=== PATIENT | female | born 1945 | race African-American/Black ===

== ENCOUNTER 2020-09-14 05:54 | Inpatient (IN) | payer OTHER, MEDICARE ==
[~2020-09-14] VITALS: Ht 160 cm; Wt 64.7 kg
[~2020-09-14 05:54] MED LIST: AMLO-258 PO; CLOP75TA60 PO; LOVA20TA3 PO; METF-444 PO
[2020-09-14] MEDS ORDERED: ONDANSETRON HCL 4 MG/2 ML VIAL ONE (06:01)
[2020-09-14 06:10] LABS: ABG A-A DIFF O2 610.9 mmHg (10-20.0); ABG BASE EXCESS -5.5 mmol/L (-2.0-3.0); ABG HCO3 19.7 mmol/L (22.0-26.0); ABG METHEMOGLOBIN 0.2 % (0.0-1.5); ABG OXYGEN CONTENT 14.1 mL/dL (15.0-23.0); ABG OXYHEMOGLOBIN 80.9 % (94.0-100.0); ABG PCO2 48 mmHg (35-45); ABG PH 7.267 (7.35-7.450); ABG TOTAL HEMOGLOBIN 12.4 G/dL (12.0-18.0); PO2, ARTERIAL BG 53.9 mmHg (75.0-83.0); SOURCE, BLOOD GAS ARTERIAL; TEMPERATURE, FAHRENHEIT, BG 98.6 FAHREN (96.0-98.6)
[2020-09-14 06:11] LABS: ABG OXYGEN SATURATION 83.6 % (95.0-98.0); O2 DEVICE,BLOOD GAS NRB (ROOM AIR); SITE, BLOOD GAS RT RADIAL
[2020-09-14] MEDS ORDERED: MethylPREDNISolone SOD SUCC 125 MG/2 ML VIAL IVP ONE (06:15)
[2020-09-14] MEDS ORDERED: NITROGLYCERIN 50 MG/D5% WATER 250 ML IV PRN (06:15)
[2020-09-14] MEDS ORDERED: IPRATROPIUM BROMIDE 0.5 MG/2.5 ML NEB SOLUTION NEB ONE (06:15)
[2020-09-14] MEDS ORDERED: ONDANSETRON HCL 4 MG/2 ML VIAL IVP ONE (06:15)
[2020-09-14] MEDS ORDERED: ALBUTEROL SULFATE 2.5 MG/0.5 ML NEB SOLUTION NEB ONE (06:15)
[2020-09-14 06:19] LABS: BASOPHILS % (AUTO) 0.8 % (0.0-2.0); EOSINOPHILS % (AUTO) 2.7 % (1.0-6.0); HEMATOCRIT 36.2 % (36-46); HEMOGLOBIN 11.8 g/dL (12.0-16.0); LYMPHOCYTES # (AUTO) 4.2 K/uL (1.0-4.8); LYMPHOCYTES % (AUTO) 36.7 % (22.0-44.0); MEAN CORPUSCULAR HGB CONC 32.6 G/dL (31.0-37.0); MEAN CORPUSCULAR VOLUME 89 fL (80-100); MONOCYTES # (AUTO) 0.9 K/uL (0.1-1.0); MONOCYTES % (AUTO) 8.2 % (2.0-9.0); NEUTROPHILS # (AUTO) 5.9 K/uL (1.8-7.7); NEUTROPHILS % (AUTO) 51.6 % (40.0-70.0); PLATELET COUNT (AUTO) 368 K/uL (150-450); RED BLOOD CELL COUNT(AUTO) 4.07 MIL/uL (4.00-5.20); RED CELL DISTRIBUTION WIDTH 15.3 % (11.5-14.5)
[2020-09-14 06:34] LABS: PROTHROMBIN TIME 10.5 SEC (9.4-11.6)
[2020-09-14 06:35] LABS: ANION GAP 13 mmol/L (8-16); CALCIUM, TOTAL 8.8 mg/dL (8.8-10.5); CARBON DIOXIDE 23 mmol/L (22-29); CHLORIDE 103 mmol/L (98-107); GLUCOSE,RANDOM 152 mg/dL (70-110); POTASSIUM 3.6 mmol/L (3.5-5.1); SODIUM SERUM 139 mmol/L (136-145); UREA NITROGEN, BLOOD 11 mg/dL (7-18)
[2020-09-14 06:37] LABS: GLOMERULAR FILTR. RATE CALC > 60 mL/min (>60)
[2020-09-14 06:38] LABS: COVID AG,FIA SOURCE NASOPHARYNGEAL
[2020-09-14 06:50] LABS: B-TYPE NATRIURETIC PEPTIDE 1250 pg/mL (0-100); LACTIC ACID 4.4 mmol/L (0.4-2.0)
[2020-09-14] MEDS ORDERED: VALS40TA4 PO (06:54)
[2020-09-14] MEDS ORDERED: SPIR-37 PO (06:54)
[2020-09-14] MEDS ORDERED: CARV3 PO (06:54)
[2020-09-14] MEDS ORDERED: FURO20 PO (06:54)
[2020-09-14] MEDS ORDERED: LEVO150 PO (06:54)
[2020-09-14] MEDS ORDERED: POTA-79 PO (06:54)
[2020-09-14 06:59] LABS: ALANINE AMINOTRANSFERASE 23 U/L (12-78); ALBUMIN 3.6 g/dL (3.4-5.0); ALKALINE PHOSPHATASE 125 U/L (46-116); ASPARTATE AMINOTRANSFERASE 32 U/L (15-37); BILIRUBIN,TOTAL 0.5 mg/dL (0.1-1.0); CREATINE KINASE, TOTAL ONLY 102 U/L (26-192); PHOSPHORUS 5.1 mg/dL (2.5-4.9); TOTAL PROTEIN, SERUM 7.6 g/dL (6.4-8.2)
[2020-09-14] MEDS ORDERED: AZITHROMYCIN 500 MG/NS 250 ML IV ONE (07:00)
[2020-09-14] MEDS ORDERED: CefTRIAXone 1 GM/DEXTROSE 50 ML IV ONE (07:00)
[2020-09-14 07:22] LABS: ABG A-A DIFF O2 274.4 mmHg (10-20.0); ABG BASE EXCESS -2.3 mmol/L (-2.0-3.0); ABG CARBOXYHEMOGLOBIN 1.1 % (0.0-1.5); ABG HCO3 22.9 mmol/L (22.0-26.0); ABG METHEMOGLOBIN 0.5 % (0.0-1.5); ABG OXYGEN CONTENT 16.5 mL/dL (15.0-23.0); ABG OXYGEN SATURATION 99.4 % (95.0-98.0); ABG OXYHEMOGLOBIN 97.8 % (94.0-100.0); ABG PCO2 39 mmHg (35-45); ABG PH 7.385 (7.35-7.450); ABG TOTAL HEMOGLOBIN 11.2 G/dL (12.0-18.0); PO2, ARTERIAL BG 399.1 mmHg (75.0-83.0); SOURCE, BLOOD GAS ARTERIAL
[2020-09-14 07:23] LABS: O2 DEVICE,BLOOD GAS BIPAP (ROOM AIR); SITE, BLOOD GAS LFT RADIAL; SPONTANEOUS VT, BG 450 ml
[2020-09-14] MEDS ORDERED: FUROSEMIDE 20 MG/2 ML VIAL IVP ONE (07:45)
[2020-09-14] MEDS ORDERED: 0.9% SODIUM CHLORIDE 10 ML SYRINGE IVP PRN ×2 (07:45→10:15)
[2020-09-14] MEDS ORDERED: ACETAMINOPHEN 325 MG TABLET PO PRN ×2 (07:45→10:15)
[2020-09-14] MEDS ORDERED: ONDANSETRON HCL 4 MG/2 ML VIAL IVP PRN ×2 (07:45→10:15)
[2020-09-14 08:35] LABS: APPEARANCE,URINE CLEAR (CLEAR); BILIRUBIN,URINE NEGATIVE (NEGATIVE); GLUCOSE, URINE (UA) NEGATIVE (NEGATIVE); KETONES,URINE NEGATIVE (NEGATIVE); LEUKOCYTE ESTERASE ,URINE NEGATIVE (NEGATIVE); NITRATE,URINE NEGATIVE (NEGATIVE); OCCULT BLOOD,URINE NEGATIVE (NEGATIVE); PROTEIN,URINE SEE CONFIRM (NEGATIVE); UROBILINOGEN,URINE 0.2 mg/dL (<=1.0)
[2020-09-14] MEDS ORDERED: NITROGLYCERIN 0.4 MG SUBLINGUAL TABLET #25 SL PRN (09:45)
[2020-09-14 09:47] LABS: SULFOSALICYLIC ACID,URINE Trace (Negative)
[2020-09-14 09:48] LABS: BACTERIA,URINE None Seen /HPF (None Seen); RBC,URINE None Seen /HPF (0-2); SQUAMOUS EPITHELIAL CELL,UR Few /LPF (None Seen); WBC,URINE None Seen /HPF (0-5)
[2020-09-14] MEDS ORDERED: BISACODYL 10 MG RECTAL RECTAL SUPPOSITORY PR PRN (10:15)
[2020-09-14] MEDS ORDERED: IPRATROPIUM BROMIDE 0.5 MG/2.5 ML NEB SOLUTION NEB PRN (10:15)
[2020-09-14] MEDS ORDERED: MAGNESIUM HYDROXIDE SUSPENSION 30 ML UDCUP PO PRN (10:15)
[2020-09-14] MEDS ORDERED: DOCUSATE SODIUM 100 MG CAPSULE PO PRN (10:15)
[2020-09-14] MEDS ORDERED: ALBUTEROL SULFATE 2.5 MG/0.5 ML NEB SOLUTION NEB PRN (10:15)
[2020-09-14] MEDS ORDERED: DEXTROSE 50%-WATER 25 GM/50 ML SYRINGE IVP PRN (10:15)
[2020-09-14] MEDS: PANTOPRAZOLE SODIUM 40 MG DR TABLET PO SCH (10:52)
[2020-09-14 12:00] VITALS: BP 128/78
[2020-09-14] MEDS: NICOTINE 14 MG/24 HOUR PATCH TD SCH (12:22)
[2020-09-14 15:09] LABS: GLUCOSE,POINT OF CARE 122 MG/DL (70-110)
[2020-09-14 16:00] VITALS: BP 112/70
[2020-09-14] MEDS: HEPARIN SODIUM,PORCINE 5,000 UNITS/ML VIAL SQ SCH (16:41)
[2020-09-14 20:00] VITALS: BP 133/71
[2020-09-14] MEDS ORDERED: CARVEDILOL 3.125 MG TABLET PO SCH (21:00)
[2020-09-14] MEDS: FUROSEMIDE 40 MG/4 ML VIAL IVP SCH (21:09)
[2020-09-14] MEDS: CARVEDILOL 6.25 MG TABLET PO SCH (21:09)
[2020-09-14] MEDS: VALSARTAN 40 MG TABLET PO SCH (21:09)
[2020-09-15] VITALS (7 sets, daily range): BP systolic 106–145; BP diastolic 64–85
[2020-09-15 03:29] LABS: GLUCOSE,POINT OF CARE 129 MG/DL (70-110)
[2020-09-15 03:29] LABS: GLUCOSE,POINT OF CARE 132 MG/DL (70-110)
[2020-09-15] MEDS: CefTRIAXone 1 GM/DEXTROSE 50 ML IV SCH (05:05)
[2020-09-15] MEDS ORDERED: SODIUM CHLORIDE 0.9% 250 ML IV ONE ×2 (05:07→18:22)
[2020-09-15 06:06] LABS: BASOPHILS % (AUTO) 0.7 % (0.0-2.0); EOSINOPHILS % (AUTO) 0.2 % (1.0-6.0); HEMATOCRIT 31.5 % (36-46); HEMOGLOBIN 10.5 g/dL (12.0-16.0); LYMPHOCYTES # (AUTO) 1.4 K/uL (1.0-4.8); MEAN CORPUSCULAR HEMOGLOBIN 29.2 pg (26.0-34.0); MEAN CORPUSCULAR HGB CONC 33.2 G/dL (31.0-37.0); MEAN CORPUSCULAR VOLUME 88 fL (80-100); MONOCYTES # (AUTO) 0.7 K/uL (0.1-1.0); NEUTROPHILS % (AUTO) 76.1 % (40.0-70.0); PLATELET COUNT (AUTO) 323 K/uL (150-450); RED BLOOD CELL COUNT(AUTO) 3.58 MIL/uL (4.00-5.20); RED CELL DISTRIBUTION WIDTH 15.6 % (11.5-14.5)
[2020-09-15] MEDS: DOXYCYCLINE HYCLATE 100 MG in DEXTROSE 5%-WATER 100 ML IV SCH ×2 (06:15→18:35)
[2020-09-15] MEDS: LEVOTHYROXINE SODIUM 150 MCG TABLET PO SCH (06:16)
[2020-09-15 06:55] LABS: ALANINE AMINOTRANSFERASE 21 U/L (12-78); ALBUMIN 2.7 g/dL (3.4-5.0); ALKALINE PHOSPHATASE 100 U/L (46-116); ANION GAP 7 mmol/L (8-16); ASPARTATE AMINOTRANSFERASE 19 U/L (15-37); BILIRUBIN,TOTAL 0.2 mg/dL (0.1-1.0); CALCIUM, TOTAL 8.6 mg/dL (8.8-10.5); CARBON DIOXIDE 29 mmol/L (22-29); CHLORIDE 101 mmol/L (98-107); CHOL/HDL RATIO 3.5 (3.9-5.7); CHOLESTEROL 177 mg/dL (131-200); CREATININE 0.91 mg/dL (0.60-1.30); FREE T4 (FREE THYROXINE) 0.92 ng/dL (0.76-1.46); GLOMERULAR FILTR. RATE CALC > 60 mL/min (>60); GLUCOSE,RANDOM 99 mg/dL (70-110); HDL CHOLESTEROL 50 mg/dL (40-60); LDL CHOL (CALC.) 113 mg/dL (0-130); POTASSIUM 3.8 mmol/L (3.5-5.1); SODIUM SERUM 137 mmol/L (136-145); TOTAL PROTEIN, SERUM 6.6 g/dL (6.4-8.2); TRIGLYCERIDES 70 mg/dL (15-150); UREA NITROGEN, BLOOD 20 mg/dL (7-18)
[2020-09-15 07:22] LABS: HEMOGLOBIN A1C 5.9 % (3.8-5.6)
[2020-09-15 07:27] LABS: GLUCOSE,POINT OF CARE 93 MG/DL (70-110)
[2020-09-15] MEDS: VALSARTAN 40 MG TABLET PO SCH ×2 (08:23→20:09)
[2020-09-15] MEDS: NICOTINE 14 MG/24 HOUR PATCH TD SCH (08:23)
[2020-09-15] MEDS: CARVEDILOL 6.25 MG TABLET PO SCH ×2 (08:23→20:09)
[2020-09-15] MEDS: HEPARIN SODIUM,PORCINE 5,000 UNITS/ML VIAL SQ SCH ×4 (08:23→23:39)
[2020-09-15] MEDS: ASPIRIN 81 MG CHEWABLE TABLET PO SCH (08:23)
[2020-09-15] MEDS: PANTOPRAZOLE SODIUM 40 MG DR TABLET PO SCH (09:00)
[2020-09-15] MEDS: FUROSEMIDE 40 MG/4 ML VIAL IVP SCH (10:41)
[2020-09-15 17:17] LABS: GLUCOSE,POINT OF CARE 122 MG/DL (70-110)
[2020-09-15] MEDS: FUROSEMIDE 40 MG TABLET PO SCH (20:09)
[2020-09-15] MEDS: INSULIN LISPRO 100 UNITS/ML SQ PRN (20:13)
[2020-09-15 21:10] LABS: GLUCOSE,POINT OF CARE 100 MG/DL (70-110)
[2020-09-16 00:02] VITALS: BP 126/73
[2020-09-16 03:29] LABS: GLUCOMETER DEV NAME(LOC) 5S.2B; GLUCOSE,POINT OF CARE 155 MG/DL (70-110)
[2020-09-16 04:49] VITALS: BP 130/82
[2020-09-16] MEDS: CefTRIAXone 1 GM/DEXTROSE 50 ML IV SCH (05:27)
[2020-09-16 05:58] LABS: BASOPHILS % (AUTO) 0.8 % (0.0-2.0); HEMATOCRIT 34.2 % (36-46); HEMOGLOBIN 11.3 g/dL (12.0-16.0); LYMPHOCYTES # (AUTO) 2.3 K/uL (1.0-4.8); LYMPHOCYTES % (AUTO) 25.4 % (22.0-44.0); MEAN CORPUSCULAR HEMOGLOBIN 28.9 pg (26.0-34.0); MEAN CORPUSCULAR HGB CONC 32.9 G/dL (31.0-37.0); MEAN CORPUSCULAR VOLUME 88 fL (80-100); MONOCYTES # (AUTO) 0.7 K/uL (0.1-1.0); MONOCYTES % (AUTO) 8.1 % (2.0-9.0); NEUTROPHILS # (AUTO) 5.9 K/uL (1.8-7.7); NEUTROPHILS % (AUTO) 64.7 % (40.0-70.0); PLATELET COUNT (AUTO) 323 K/uL (150-450); RED CELL DISTRIBUTION WIDTH 15.6 % (11.5-14.5)
[2020-09-16] MEDS: LEVOTHYROXINE SODIUM 150 MCG TABLET PO SCH (06:05)
[2020-09-16] MEDS: DOXYCYCLINE HYCLATE 100 MG in DEXTROSE 5%-WATER 100 ML IV SCH ×2 (06:06→18:59)
[2020-09-16 06:59] LABS: ALANINE AMINOTRANSFERASE 17 U/L (12-78); ALBUMIN 2.9 g/dL (3.4-5.0); ALKALINE PHOSPHATASE 96 U/L (46-116); ANION GAP 7 mmol/L (8-16); ASPARTATE AMINOTRANSFERASE 17 U/L (15-37); BILIRUBIN,TOTAL 0.3 mg/dL (0.1-1.0); CALCIUM, TOTAL 8.5 mg/dL (8.8-10.5); CARBON DIOXIDE 30 mmol/L (22-29); CHLORIDE 99 mmol/L (98-107); CREATININE 0.77 mg/dL (0.60-1.30); GLOMERULAR FILTR. RATE CALC > 60 mL/min (>60); GLUCOSE,RANDOM 73 mg/dL (70-110); POTASSIUM 3.3 mmol/L (3.5-5.1); SODIUM SERUM 136 mmol/L (136-145); UREA NITROGEN, BLOOD 22 mg/dL (7-18)
[2020-09-16 08:05] VITALS: BP 145/81
[2020-09-16] MEDS: ASPIRIN 81 MG CHEWABLE TABLET PO SCH (08:06)
[2020-09-16] MEDS: HEPARIN SODIUM,PORCINE 5,000 UNITS/ML VIAL SQ SCH ×3 (08:07→23:56)
[2020-09-16] MEDS: CARVEDILOL 6.25 MG TABLET PO SCH ×2 (08:07→20:34)
[2020-09-16] MEDS: VALSARTAN 40 MG TABLET PO SCH ×2 (08:08→20:34)
[2020-09-16] MEDS: PANTOPRAZOLE SODIUM 40 MG DR TABLET PO SCH (08:08)
[2020-09-16] MEDS: FUROSEMIDE 40 MG TABLET PO SCH ×2 (08:08→20:34)
[2020-09-16] MEDS: NICOTINE 14 MG/24 HOUR PATCH TD SCH (09:29)
[2020-09-16 10:38] LABS: COVID AG,FIA SOURCE NASOPHARYNGEAL
[2020-09-16 12:05] VITALS: BP 125/77
[2020-09-16] MEDS ORDERED: SPIR-37 PO (13:48)
[2020-09-16] MEDS ORDERED: ASPI81TA39 PO (14:38)
[2020-09-16] MEDS: INSULIN LISPRO 100 UNITS/ML SQ PRN (18:50)
[2020-09-16] MEDS ORDERED: POTASSIUM CHLORIDE 20 MEQ ER TABLET PO ONE (19:30)
[2020-09-16 20:04] VITALS: BP 141/74
[2020-09-16 23:58] VITALS: BP 142/83
[2020-09-17 03:53] VITALS: BP 128/83
[2020-09-17] MEDS: CefTRIAXone 1 GM/DEXTROSE 50 ML IV SCH (04:10)
[2020-09-17] MEDS: DOXYCYCLINE HYCLATE 100 MG in DEXTROSE 5%-WATER 100 ML IV SCH (05:28)
[2020-09-17] MEDS: LEVOTHYROXINE SODIUM 150 MCG TABLET PO SCH (05:32)
[2020-09-17 08:10] LABS: GLUCOMETER DEV NAME(LOC) 6S.1; GLUCOSE,POINT OF CARE 94 MG/DL (70-110)
[2020-09-17 08:17] VITALS: BP 129/68
[2020-09-17] MEDS: FUROSEMIDE 40 MG TABLET PO SCH (08:25)
[2020-09-17] MEDS: NICOTINE 14 MG/24 HOUR PATCH TD SCH (08:25)
[2020-09-17] MEDS: PANTOPRAZOLE SODIUM 40 MG DR TABLET PO SCH (08:26)
[2020-09-17] MEDS: HEPARIN SODIUM,PORCINE 5,000 UNITS/ML VIAL SQ SCH (08:26)
[2020-09-17] MEDS: ASPIRIN 81 MG CHEWABLE TABLET PO SCH (08:26)
[2020-09-17] MEDS: CARVEDILOL 6.25 MG TABLET PO SCH (08:26)
[2020-09-17 09:02] LABS: GLUCOMETER DEV NAME(LOC) 5S.1; GLUCOSE,POINT OF CARE 198 MG/DL (70-110)
[2020-09-17 09:02] LABS: GLUCOMETER DEV NAME(LOC) 5S.2B; GLUCOSE,POINT OF CARE 146 MG/DL (70-110)
[2020-09-17] MEDS: VALSARTAN 40 MG TABLET PO SCH (09:09)
[2020-09-17 10:09] LABS: ANION GAP 4 mmol/L (8-16); CALCIUM, TOTAL 8.8 mg/dL (8.8-10.5); CARBON DIOXIDE 31 mmol/L (22-29); CHLORIDE 100 mmol/L (98-107); CREATININE 1.03 mg/dL (0.60-1.30); GLUCOSE,RANDOM 100 mg/dL (70-110); POTASSIUM 3.4 mmol/L (3.5-5.1); SODIUM SERUM 135 mmol/L (136-145); UREA NITROGEN, BLOOD 18 mg/dL (7-18)
[2020-09-17 10:10] LABS: GLOMERULAR FILTR. RATE CALC > 60 mL/min (>60)
[2020-09-17 19:15] LABS: GLUCOMETER DEV NAME(LOC) 6S.1; GLUCOSE,POINT OF CARE 82 MG/DL (70-110)
[2020-09-18 01:31] LABS: GLUCOMETER DEV NAME(LOC) 5N.1C; GLUCOSE,POINT OF CARE 127 MG/DL (70-110)
[2020-09-18 01:31] LABS: GLUCOMETER DEV NAME(LOC) 5N.1C; GLUCOSE,POINT OF CARE 92 MG/DL (70-110)
== END 2020-09-17 16:57 | disposition home health service (06) | DRG 291 ==
LOC: EMS 05:54 → ICU 08:16 → 5N 09-15 17:50 → 6N 09-17 04:21
PROVIDERS: ADMIT Internal Medicine; ATTEND Internal Medicine
PROC: 5A09357 Assistance with Respiratory Ventilation, Less than 24 Consecutive Hours, Continuous Positive Airway Pressure (ICD-10-PCS; 2020-09-14)
PROC: 05HY33Z Insertion of Infusion Device into Upper Vein, Percutaneous Approach (ICD-10-PCS; principal; 2020-09-15)
PROC: B54NZZA Ultrasonography of Left Upper Extremity Veins, Guidance (ICD-10-PCS; 2020-09-15)
DX: I11.0 Hypertensive heart disease with heart failure (principal); J96.01 Acute respiratory failure with hypoxia; J18.9 Pneumonia, unspecified organism; J44.1 Chronic obstructive pulmonary disease with (acute) exacerbation; E87.2 Acidosis; J44.0 Chronic obstructive pulmonary disease with (acute) lower respiratory infection; I50.23 Acute on chronic systolic (congestive) heart failure; I42.9 Cardiomyopathy, unspecified; E03.9 Hypothyroidism, unspecified; E11.9 Type 2 diabetes mellitus without complications; E78.5 Hyperlipidemia, unspecified; Z91.14 Patient's other noncompliance with medication regimen; Z87.891 Personal history of nicotine dependence; Z90.710 Acquired absence of both cervix and uterus; Z79.899 Other long term (current) drug therapy; Z82.49 Family history of ischemic heart disease and other diseases of the circulatory system; Z20.822 Contact with and (suspected) exposure to COVID-19
CPT/HCPCS: 36245; 36569; 36600; 71045; 71250; 76937; 80048; 80053; 80061; 81001; 81002; 82550; 82805; 82962; 83036; 83605; 83735; 83880; 84100; 84145; 84439; 84443; 84484; 85025; 85610; 85730; 87040; 87081; 93005; 93306; 94640; 94660; 97116; 97162; 99291; G0378; J0456; J0696; J1644; J1940; J2405; J2930; J3490; J7050; J7060; 36415-L1; 36415-TC; J7613; U0003

== ENCOUNTER 2021-12-08 03:15 | Inpatient (IN) | payer MEDICARE, OTHER ==
[~2021-12-08] VITALS: Ht 160 cm; Wt 72.4 kg
[~2021-12-08 03:15] MED LIST changes: -AMLO-258 PO; +ASPI81TA39 PO; +CARV3 PO; -CLOP75TA60 PO; +FURO20 PO; +LEVO150 PO; -LOVA20TA3 PO; -METF-444 PO; +POTA-79 PO; +SPIR-37 PO; +VALS40TA4 PO
[2021-12-08] MEDS ORDERED: ASPIRIN 300 MG RECTAL SUPPOSITORY PR ONE (03:30)
[2021-12-08] MEDS ORDERED: FUROSEMIDE 40 MG/4 ML VIAL IVP ONE (03:30)
[2021-12-08] MEDS ORDERED: NITROGLYCERIN 50 MG/D5% WATER 250 ML IV PRN (03:30)
[2021-12-08 03:35] LABS: BASOPHILS % (AUTO) 0.4 % (0.0-2.0); EOSINOPHILS % (AUTO) 1.1 % (1.0-6.0); HEMATOCRIT 36.1 % (36-46); HEMOGLOBIN 11.8 g/dL (12.0-16.0); LYMPHOCYTES # (AUTO) 2.5 K/uL (1.0-4.8); LYMPHOCYTES % (AUTO) 21.9 % (22.0-44.0); MEAN CORPUSCULAR HEMOGLOBIN 28.8 pg (26.0-34.0); MEAN CORPUSCULAR HGB CONC 32.8 G/dL (31.0-37.0); MEAN CORPUSCULAR VOLUME 88 fL (80-100); MONOCYTES # (AUTO) 0.4 K/uL (0.1-1.0); MONOCYTES % (AUTO) 3.7 % (2.0-9.0); NEUTROPHILS # (AUTO) 8.2 K/uL (1.8-7.7); NEUTROPHILS % (AUTO) 72.9 % (40.0-70.0); PLATELET COUNT (AUTO) 294 K/uL (150-450); RED BLOOD CELL COUNT(AUTO) 4.11 MIL/uL (4.00-5.20); RED CELL DISTRIBUTION WIDTH 15.4 % (11.5-14.5)
[2021-12-08 03:50] LABS: INR 1.1 (0.9-1.1); PROTHROMBIN TIME 11.5 SEC (9.4-11.6)
[2021-12-08 03:56] LABS: B-TYPE NATRIURETIC PEPTIDE 1240 pg/mL (0-100)
[2021-12-08 03:58] LABS: ALANINE AMINOTRANSFERASE 50 U/L (12-78); ALBUMIN 3.9 g/dL (3.4-5.0); ALKALINE PHOSPHATASE 106 U/L (46-116); ANION GAP 11 mmol/L (8-16); ASPARTATE AMINOTRANSFERASE 76 U/L (15-37); BILIRUBIN,TOTAL 0.5 mg/dL (0.1-1.0); CALCIUM, TOTAL 8.7 mg/dL (8.8-10.5); CARBON DIOXIDE 28 mmol/L (22-29); CHLORIDE 101 mmol/L (98-107); CREATINE KINASE, TOTAL ONLY 207 U/L (26-192); CREATININE 0.89 mg/dL (0.60-1.30); GLOMERULAR FILTR. RATE CALC > 60 mL/min (>60); GLUCOSE,RANDOM 230 mg/dL (70-110); PHOSPHORUS 4.5 mg/dL (2.5-4.9); SODIUM SERUM 140 mmol/L (136-145); TOTAL PROTEIN, SERUM 8.3 g/dL (6.4-8.2); UREA NITROGEN, BLOOD 14 mg/dL (7-18)
[2021-12-08 04:15] LABS: COVID AG,FIA SOURCE NASOPHARYNGEAL
[2021-12-08] MEDS ORDERED: POTASSIUM CHL 10 MEQ/WATER 50 ML IV SCH (04:15)
[2021-12-08 04:17] LABS: APPEARANCE,URINE CLEAR (CLEAR); BILIRUBIN,URINE NEGATIVE (NEGATIVE); GLUCOSE, URINE (UA) 150-200 mg/dL (NEGATIVE); KETONES,URINE NEGATIVE (NEGATIVE); LEUKOCYTE ESTERASE ,URINE NEGATIVE (NEGATIVE); NITRATE,URINE NEGATIVE (NEGATIVE); OCCULT BLOOD,URINE TRACE (NEGATIVE); PH,URINE 6.5 (5.0-8.0); PROTEIN,URINE 30-70 mg/dL (NEGATIVE); SPECIFIC GRAVITIY, URINE 1.007 (1.003-1.030); UROBILINOGEN,URINE <=1.0 mg/dL (<=1.0)
[2021-12-08 04:35] LABS: BACTERIA,URINE None Seen /HPF (None Seen); RBC,URINE 0-2 /HPF (0-2); WBC,URINE None Seen /HPF (0-5)
[2021-12-08] MEDS ORDERED: POTASSIUM CHLORIDE 20 MEQ ER TABLET PO ONE (05:00)
[2021-12-08] MEDS ORDERED: DEXTROSE 50%-WATER 25 GM/50 ML SYRINGE IVP PRN (05:45)
[2021-12-08] MEDS: LEVOTHYROXINE SODIUM 150 MCG TABLET PO SCH (06:28)
[2021-12-08] MEDS ORDERED: FUROSEMIDE 40 MG/4 ML VIAL IVP SCH (09:00)
[2021-12-08] MEDS: SPIRONOLACTONE 25 MG TABLET PO SCH (09:13)
[2021-12-08] MEDS: VALSARTAN 40 MG TABLET PO SCH ×2 (09:13→21:15)
[2021-12-08] MEDS: ASPIRIN 81 MG CHEWABLE TABLET PO SCH (09:13)
[2021-12-08] MEDS: CARVEDILOL 3.125 MG TABLET PO SCH ×2 (09:14→21:15)
[2021-12-08] MEDS: ATORVASTATIN CALCIUM 40 MG TABLET PO SCH (09:14)
[2021-12-08 09:26] LABS: ABG BASE EXCESS 6.5 mmol/L (-2.0-3.0); ABG CARBOXYHEMOGLOBIN 0.8 % (0.0-1.5); ABG HCO3 29.7 mmol/L (22.0-26.0); ABG METHEMOGLOBIN 0.2 % (0.0-1.5); ABG OXYGEN CONTENT 17.7 mL/dL (15.0-23.0); ABG OXYGEN SATURATION 96.9 % (95.0-98.0); ABG OXYHEMOGLOBIN 95.9 % (94.0-100.0); ABG PCO2 43 mmHg (35-45); ABG PH 7.467 (7.35-7.450); ABG TOTAL HEMOGLOBIN 13.1 G/dL (12.0-18.0); PO2, ARTERIAL BG 88.7 mmHg (75.0-83.0); SOURCE, BLOOD GAS ARTERIAL
[2021-12-08 09:30] LABS: SITE, BLOOD GAS LFT RADIAL
[2021-12-08 09:31] LABS: ABG A-A DIFF O2 147.5 mmHg (10-20.0); O2 DEVICE,BLOOD GAS BIPAP (ROOM AIR)
[2021-12-08 09:32] LABS: SPONTANEOUS VT, BG 206 ml
[2021-12-08] MEDS: FUROSEMIDE 40 MG/4 ML VIAL IVP SCH ×2 (15:10→21:14)
[2021-12-08] MEDS ORDERED: POTASSIUM CHLORIDE 20 MEQ ER TABLET PO PRN (18:15)
[2021-12-08] MEDS ORDERED: POTASSIUM CHL 10 MEQ/WATER 50 ML IV PRN (18:15)
[2021-12-08] MEDS ORDERED: INSULIN GLARGINE,HUM.REC.ANLOG 100 UNITS/ML SQ SCH (21:00)
[2021-12-08 21:01] LABS: GLUCOSE,POINT OF CARE 103 MG/DL (70-110)
[2021-12-09 07:06] LABS: GLUCOSE,POINT OF CARE 107 MG/DL (70-110)
[2021-12-09] MEDS: LEVOTHYROXINE SODIUM 150 MCG TABLET PO SCH (07:17)
[2021-12-09 07:52] LABS: EOSINOPHILS % (AUTO) 1.9 % (1.0-6.0); LYMPHOCYTES # (AUTO) 1.4 K/uL (1.0-4.8); MEAN CORPUSCULAR HEMOGLOBIN 28.9 pg (26.0-34.0); MEAN CORPUSCULAR HGB CONC 32.5 G/dL (31.0-37.0); MEAN CORPUSCULAR VOLUME 89 fL (80-100); MONOCYTES # (AUTO) 0.6 K/uL (0.1-1.0); MONOCYTES % (AUTO) 8.8 % (2.0-9.0); NEUTROPHILS # (AUTO) 4.5 K/uL (1.8-7.7); NEUTROPHILS % (AUTO) 67.3 % (40.0-70.0); PLATELET COUNT (AUTO) 260 K/uL (150-450); RED CELL DISTRIBUTION WIDTH 15.3 % (11.5-14.5)
[2021-12-09] MEDS: CARVEDILOL 3.125 MG TABLET PO SCH ×2 (08:11→20:53)
[2021-12-09] MEDS: ATORVASTATIN CALCIUM 40 MG TABLET PO SCH (08:12)
[2021-12-09] MEDS: FUROSEMIDE 40 MG/4 ML VIAL IVP SCH ×3 (08:12→20:53)
[2021-12-09] MEDS: ASPIRIN 81 MG CHEWABLE TABLET PO SCH (08:12)
[2021-12-09] MEDS: SPIRONOLACTONE 25 MG TABLET PO SCH (08:23)
[2021-12-09] MEDS: VALSARTAN 40 MG TABLET PO SCH ×2 (08:23→20:54)
[2021-12-09 08:34] LABS: ANION GAP 5 mmol/L (8-16); CALCIUM, TOTAL 7.6 mg/dL (8.8-10.5); CARBON DIOXIDE 32 mmol/L (22-29); CHLORIDE 104 mmol/L (98-107); CREATININE 0.94 mg/dL (0.60-1.30); GLOMERULAR FILTR. RATE CALC > 60 mL/min (>60); GLUCOSE,RANDOM 98 mg/dL (70-110); SODIUM SERUM 141 mmol/L (136-145); UREA NITROGEN, BLOOD 14 mg/dL (7-18)
[2021-12-09] MEDS ORDERED: MAGNESIUM SULFATE 2 GM/WATER 50 ML IV PRN (15:30)
[2021-12-09] MEDS ORDERED: MAGNESIUM SULFATE 4 GM/WATER 100 ML IV PRN (15:30)
[2021-12-09 16:00] VITALS: BP 109/64
[2021-12-09] MEDS: MAGNESIUM OXIDE 400 MG TABLET PO PRN (16:52)
[2021-12-09 17:06] LABS: GLUCOMETER DEV NAME(LOC) 5S.2B; GLUCOSE,POINT OF CARE 124 MG/DL (70-110)
[2021-12-09] MEDS ORDERED: PNEUMOCOCCAL VACCINE POLYVALENT 0.5 ML VIAL [PPSV23] IM. ONE (18:00)
[2021-12-09 20:30] VITALS: BP 126/54
[2021-12-09] MEDS: INSULIN GLARGINE,HUM.REC.ANLOG 100 UNITS/ML SQ SCH (20:55)
[2021-12-09] MEDS: INSULIN LISPRO 100 UNITS/ML SQ PRN (20:55)
[2021-12-09 23:58] VITALS: BP 114/73
[2021-12-10] MEDS: MAGNESIUM OXIDE 400 MG TABLET PO PRN (00:16)
[2021-12-10 04:47] VITALS: BP 124/74
[2021-12-10] MEDS: LEVOTHYROXINE SODIUM 150 MCG TABLET PO SCH (06:27)
[2021-12-10 07:37] VITALS: BP 115/68
[2021-12-10] MEDS: FUROSEMIDE 40 MG/4 ML VIAL IVP SCH ×3 (09:00→20:13)
[2021-12-10] MEDS: ATORVASTATIN CALCIUM 40 MG TABLET PO SCH (09:01)
[2021-12-10] MEDS: CARVEDILOL 3.125 MG TABLET PO SCH ×2 (09:01→20:13)
[2021-12-10] MEDS: VALSARTAN 40 MG TABLET PO SCH ×2 (09:01→20:13)
[2021-12-10] MEDS: ASPIRIN 81 MG CHEWABLE TABLET PO SCH (09:01)
[2021-12-10] MEDS: SPIRONOLACTONE 25 MG TABLET PO SCH (09:02)
[2021-12-10 11:06] LABS: GLUCOMETER DEV NAME(LOC) 5S.2B; GLUCOSE,POINT OF CARE 118 MG/DL (70-110)
[2021-12-10 11:06] LABS: GLUCOMETER DEV NAME(LOC) 5S.2B; GLUCOSE,POINT OF CARE 152 MG/DL (70-110)
[2021-12-10 11:24] VITALS: BP 101/61
[2021-12-10 16:19] VITALS: BP 98/56
[2021-12-10 19:43] VITALS: BP 98/52
[2021-12-10] MEDS: INSULIN GLARGINE,HUM.REC.ANLOG 100 UNITS/ML SQ SCH (20:42)
[2021-12-11 00:18] VITALS: BP 113/58
[2021-12-11 05:03] VITALS: BP 104/54
[2021-12-11] MEDS: LEVOTHYROXINE SODIUM 150 MCG TABLET PO SCH (05:51)
[2021-12-11 06:07] LABS: GLUCOMETER DEV NAME(LOC) 5S.2B; GLUCOSE,POINT OF CARE 133 MG/DL (70-110)
[2021-12-11 06:07] LABS: GLUCOMETER DEV NAME(LOC) 5S.2B; GLUCOSE,POINT OF CARE 106 MG/DL (70-110)
[2021-12-11 06:07] LABS: GLUCOMETER DEV NAME(LOC) 5S.2B; GLUCOSE,POINT OF CARE 95 MG/DL (70-110)
[2021-12-11 07:17] LABS: CALCIUM, TOTAL 9.3 mg/dL (8.8-10.5); CREATININE 1.26 mg/dL (0.60-1.30); POTASSIUM 3.6 mmol/L (3.5-5.1)
[2021-12-11 07:19] LABS: BASOPHILS % (AUTO) 0.7 % (0.0-2.0); EOSINOPHILS % (AUTO) 3.4 % (1.0-6.0); HEMATOCRIT 37.6 % (36-46); HEMOGLOBIN 12.2 g/dL (12.0-16.0); LYMPHOCYTES # (AUTO) 1.7 K/uL (1.0-4.8); LYMPHOCYTES % (AUTO) 22.8 % (22.0-44.0); MEAN CORPUSCULAR HEMOGLOBIN 29.1 pg (26.0-34.0); MEAN CORPUSCULAR HGB CONC 32.4 G/dL (31.0-37.0); MEAN CORPUSCULAR VOLUME 90 fL (80-100); MONOCYTES # (AUTO) 0.6 K/uL (0.1-1.0); MONOCYTES % (AUTO) 8.5 % (2.0-9.0); NEUTROPHILS # (AUTO) 4.7 K/uL (1.8-7.7); NEUTROPHILS % (AUTO) 64.6 % (40.0-70.0); PLATELET COUNT (AUTO) 252 K/uL (150-450); RED BLOOD CELL COUNT(AUTO) 4.18 MIL/uL (4.00-5.20); RED CELL DISTRIBUTION WIDTH 15.1 % (11.5-14.5)
[2021-12-11 07:33] VITALS: BP 113/50
[2021-12-11] MEDS: CARVEDILOL 3.125 MG TABLET PO SCH ×2 (09:22→21:20)
[2021-12-11] MEDS: VALSARTAN 40 MG TABLET PO SCH ×2 (09:23→21:00)
[2021-12-11] MEDS: FUROSEMIDE 40 MG TABLET PO SCH ×2 (09:23→21:20)
[2021-12-11] MEDS: ATORVASTATIN CALCIUM 40 MG TABLET PO SCH (09:23)
[2021-12-11] MEDS: SPIRONOLACTONE 25 MG TABLET PO SCH (09:23)
[2021-12-11] MEDS: ASPIRIN 81 MG CHEWABLE TABLET PO SCH (09:23)
[2021-12-11 10:54] VITALS: BP 103/52
[2021-12-11 16:14] VITALS: BP 101/50
[2021-12-11 16:57] LABS: GLUCOMETER DEV NAME(LOC) 5N.3; GLUCOSE,POINT OF CARE 124 MG/DL (70-110)
[2021-12-11 20:00] VITALS: BP 112/58
[2021-12-11] MEDS: INSULIN GLARGINE,HUM.REC.ANLOG 100 UNITS/ML SQ SCH (21:18)
[2021-12-11] MEDS: INSULIN LISPRO 100 UNITS/ML SQ PRN (21:19)
[2021-12-11 21:46] LABS: GLUCOMETER DEV NAME(LOC) 5N.3; GLUCOSE,POINT OF CARE 89 MG/DL (70-110)
[2021-12-12] VITALS: BP 115/54
[2021-12-12 00:51] LABS: GLUCOMETER DEV NAME(LOC) 5N.1C; GLUCOSE,POINT OF CARE 171 MG/DL (70-110)
[2021-12-12 04:45] VITALS: BP 125/66
[2021-12-12 06:18] LABS: BASOPHILS % (AUTO) 0.9 % (0.0-2.0); EOSINOPHILS % (AUTO) 3.7 % (1.0-6.0); HEMATOCRIT 35.7 % (36-46); HEMOGLOBIN 11.9 g/dL (12.0-16.0); LYMPHOCYTES # (AUTO) 1.7 K/uL (1.0-4.8); LYMPHOCYTES % (AUTO) 21.8 % (22.0-44.0); MEAN CORPUSCULAR HEMOGLOBIN 29.6 pg (26.0-34.0); MEAN CORPUSCULAR HGB CONC 33.2 G/dL (31.0-37.0); MEAN CORPUSCULAR VOLUME 89 fL (80-100); MONOCYTES # (AUTO) 0.7 K/uL (0.1-1.0); MONOCYTES % (AUTO) 8.7 % (2.0-9.0); NEUTROPHILS # (AUTO) 5.1 K/uL (1.8-7.7); NEUTROPHILS % (AUTO) 64.9 % (40.0-70.0); PLATELET COUNT (AUTO) 257 K/uL (150-450); RED BLOOD CELL COUNT(AUTO) 4.01 MIL/uL (4.00-5.20); RED CELL DISTRIBUTION WIDTH 15.5 % (11.5-14.5)
[2021-12-12] MEDS: LEVOTHYROXINE SODIUM 150 MCG TABLET PO SCH (06:30)
[2021-12-12 06:39] LABS: CALCIUM, TOTAL 9.2 mg/dL (8.8-10.5); CREATININE 1.12 mg/dL (0.60-1.30); POTASSIUM 3.7 mmol/L (3.5-5.1)
[2021-12-12 06:51] LABS: GLUCOMETER DEV NAME(LOC) 5N.1C; GLUCOSE,POINT OF CARE 102 MG/DL (70-110)
[2021-12-12] MEDS: ATORVASTATIN CALCIUM 40 MG TABLET PO SCH (08:13)
[2021-12-12] MEDS: FUROSEMIDE 40 MG TABLET PO SCH (08:13)
[2021-12-12] MEDS: ASPIRIN 81 MG CHEWABLE TABLET PO SCH (08:13)
[2021-12-12] MEDS: VALSARTAN 40 MG TABLET PO SCH (08:14)
[2021-12-12] MEDS: SPIRONOLACTONE 25 MG TABLET PO SCH (08:14)
[2021-12-12] MEDS: CARVEDILOL 3.125 MG TABLET PO SCH (08:18)
[2021-12-12 08:21] VITALS: BP 121/63
[2021-12-12] MEDS ORDERED: VALS40TA4 PO (11:36)
[2021-12-12] MEDS ORDERED: SPIR-37 PO (11:36)
[2021-12-12] MEDS ORDERED: FURO40 PO (11:36)
[2021-12-12] MEDS ORDERED: LEVO150 PO (11:36)
[2021-12-12] MEDS ORDERED: METF-1211 PO (11:36)
[2021-12-12] MEDS ORDERED: CARV3 PO (11:36)
[2021-12-12] MEDS ORDERED: ATOR40TA71 PO (11:36)
[2021-12-12] MEDS ORDERED: ASPI81 PO (11:36)
[2021-12-12 12:11] VITALS: BP 119/68
[2021-12-12 20:52] LABS: GLUCOMETER DEV NAME(LOC) 5N.3; GLUCOSE,POINT OF CARE 98 MG/DL (70-110)
== END 2021-12-12 16:15 | disposition home or self-care (01) | DRG 291 ==
LOC: EMS 03:15 → 5N 12-09 14:24
PROVIDERS: ADMIT Internal Medicine; ATTEND Internal Medicine
PROC: 5A09357 Assistance with Respiratory Ventilation, Less than 24 Consecutive Hours, Continuous Positive Airway Pressure (ICD-10-PCS; principal; 2021-12-09)
DX: I11.0 Hypertensive heart disease with heart failure (principal); I50.23 Acute on chronic systolic (congestive) heart failure; J96.01 Acute respiratory failure with hypoxia; I16.1 Hypertensive emergency; I42.8 Other cardiomyopathies; F17.210 Nicotine dependence, cigarettes, uncomplicated; E87.6 Hypokalemia; E83.42 Hypomagnesemia; E78.5 Hyperlipidemia, unspecified; D64.9 Anemia, unspecified; E11.65 Type 2 diabetes mellitus with hyperglycemia; E03.9 Hypothyroidism, unspecified; E66.9 Obesity, unspecified; I34.0 Nonrheumatic mitral (valve) insufficiency; Z20.822 Contact with and (suspected) exposure to COVID-19; Z79.4 Long term (current) use of insulin; Z79.82 Long term (current) use of aspirin; Z90.710 Acquired absence of both cervix and uterus; Z91.14 Patient's other noncompliance with medication regimen; Z79.899 Other long term (current) drug therapy; Z68.28 Body mass index [BMI] 28.0-28.9, adult
CPT/HCPCS: 36600; 51702; 71045; 80048; 80053; 81001; 81003; 82040; 82550; 82805; 82962; 83036; 83735; 83880; 84100; 84132; 84484; 85025; 85610; 85730; 90732; 93005; 93306; 94660; 97116; 97162; 99291; J1815; J1940; J3480; J3490; 36415-L1; 36415-TC

== ENCOUNTER 2022-02-26 02:31 | Inpatient (IN) | payer MEDICARE ==
[~2022-02-26] VITALS: Ht 160 cm; Wt 70.9 kg
[~2022-02-26 02:31] MED LIST changes: +ASPI81 PO; -ASPI81TA39 PO; +ATOR40TA71 PO; -FURO20 PO; +FURO40 PO; +METF-1211 PO
[2022-02-26] MEDS ORDERED: ASPIRIN 81 MG CHEWABLE TABLET PO ONE ×2 (02:45)
[2022-02-26] MEDS ORDERED: FUROSEMIDE 40 MG/4 ML VIAL IVP ONE ×2 (02:45)
[2022-02-26] MEDS ORDERED: NITROGLYCERIN 2% (1 GM=INCH) OINTMENT PACKET TP ONE ×2 (02:45)
[2022-02-26 03:06] LABS: EOSINOPHILS % (AUTO) 2.6 % (1.0-6.0); HEMATOCRIT 37.7 % (36-46); HEMOGLOBIN 12.2 g/dL (12.0-16.0); LYMPHOCYTES # (AUTO) 4.3 K/uL (1.0-4.8); LYMPHOCYTES % (AUTO) 33.2 % (22.0-44.0); MEAN CORPUSCULAR HEMOGLOBIN 28.6 pg (26.0-34.0); MEAN CORPUSCULAR HGB CONC 32.3 G/dL (31.0-37.0); MEAN CORPUSCULAR VOLUME 88 fL (80-100); MONOCYTES # (AUTO) 0.7 K/uL (0.1-1.0); MONOCYTES % (AUTO) 5.8 % (2.0-9.0); NEUTROPHILS # (AUTO) 7.4 K/uL (1.8-7.7); NEUTROPHILS % (AUTO) 57.4 % (40.0-70.0); RED BLOOD CELL COUNT(AUTO) 4.27 MIL/uL (4.00-5.20); RED CELL DISTRIBUTION WIDTH 16.5 % (11.5-14.5)
[2022-02-26 03:15] LABS: ANION GAP 9 mmol/L (8-16); CALCIUM, TOTAL 8.8 mg/dL (8.8-10.5); CARBON DIOXIDE 24 mmol/L (22-29); CHLORIDE 102 mmol/L (98-107); CREATININE 0.97 mg/dL (0.60-1.30); GLUCOSE,RANDOM 240 mg/dL (70-110); POTASSIUM 3.5 mmol/L (3.5-5.1); SODIUM SERUM 135 mmol/L (136-145); UREA NITROGEN, BLOOD 15 mg/dL (7-18)
[2022-02-26 03:19] LABS: GLOMERULAR FILTR. RATE CALC > 60 mL/min (>60)
[2022-02-26 03:21] LABS: ALANINE AMINOTRANSFERASE 17 U/L (12-78); ALBUMIN 3.7 g/dL (3.4-5.0); ALKALINE PHOSPHATASE 101 U/L (46-116); ASPARTATE AMINOTRANSFERASE 27 U/L (15-37); BILIRUBIN,TOTAL 0.3 mg/dL (0.1-1.0); TOTAL PROTEIN, SERUM 8.3 g/dL (6.4-8.2)
[2022-02-26 03:22] LABS: B-TYPE NATRIURETIC PEPTIDE 1030 pg/mL (0-100)
[2022-02-26 03:36] LABS: PLATELET COUNT (AUTO) 184 K/uL (150-450)
[2022-02-26 03:42] LABS: APPEARANCE,URINE CLEAR (CLEAR); BILIRUBIN,URINE NEGATIVE (NEGATIVE); GLUCOSE, URINE (UA) 150-200 mg/dL (NEGATIVE); KETONES,URINE NEGATIVE (NEGATIVE); LEUKOCYTE ESTERASE ,URINE NEGATIVE (NEGATIVE); NITRATE,URINE NEGATIVE (NEGATIVE); OCCULT BLOOD,URINE NEGATIVE (NEGATIVE); PROTEIN,URINE 30-70 mg/dL (NEGATIVE); SPECIFIC GRAVITIY, URINE 1.008 (1.003-1.030); UROBILINOGEN,URINE <=1.0 mg/dL (<=1.0)
[2022-02-26 03:53] LABS: BACTERIA,URINE None Seen /HPF (None Seen); RBC,URINE None Seen /HPF (0-2); WBC,URINE 0-2 /HPF (0-5)
[2022-02-26] MEDS ORDERED: INSULIN LISPRO 100 UNITS/ML SQ PRN (05:15)
[2022-02-26] MEDS ORDERED: ONDANSETRON HCL 4 MG/2 ML VIAL IVP PRN (05:15)
[2022-02-26] MEDS ORDERED: DEXTROSE 50%-WATER 25 GM/50 ML SYRINGE IVP PRN (05:15)
[2022-02-26] MEDS ORDERED: CefTRIAXone 1 GM/DEXTROSE 50 ML IV ONE (05:45)
[2022-02-26] MEDS ORDERED: AZITHROMYCIN 500 MG/NS 250 ML IV ONE (05:45)
[2022-02-26 05:59] LABS: COVID AG,FIA SOURCE NASOPHARYNGEAL
[2022-02-26 06:24] LABS: INFLUENZA TYPE A NEGATIVE FOR TYPE A (NEGATIVE); INFLUENZA TYPE B NEGATIVE FOR TYPE B (NEGATIVE)
[2022-02-26 08:31] LABS: GLUCOMETER DEV NAME(LOC) PVLAB.35; GLUCOSE,POINT OF CARE 84 MG/DL (70-110)
[2022-02-26] MEDS: HEPARIN SODIUM,PORCINE 5,000 UNITS/ML VIAL SQ SCH ×2 (08:59→17:05)
[2022-02-26] MEDS: FUROSEMIDE 20 MG/2 ML VIAL IVP SCH (09:00)
[2022-02-26] MEDS ORDERED: VALSARTAN 40 MG TABLET PO SCH (09:00)
[2022-02-26] MEDS: ATORVASTATIN CALCIUM 40 MG TABLET PO SCH (09:00)
[2022-02-26] MEDS ORDERED: CARVEDILOL 3.125 MG TABLET PO SCH (09:00)
[2022-02-26] MEDS: LEVOTHYROXINE SODIUM 150 MCG TABLET PO SCH (09:07)
[2022-02-26] MEDS: ASPIRIN 81 MG CHEWABLE TABLET PO SCH (10:20)
[2022-02-26] MEDS ORDERED: CARV6 PO (11:09)
[2022-02-26] MEDS ORDERED: METF-1211 PO (11:10)
[2022-02-26] MEDS: VALSARTAN 40 MG TABLET PO SCH (11:19)
[2022-02-26] MEDS: SPIRONOLACTONE 25 MG TABLET PO SCH (11:20)
[2022-02-26 12:21] LABS: GLUCOMETER DEV NAME(LOC) PVLAB.35; GLUCOSE,POINT OF CARE 102 MG/DL (70-110)
[2022-02-26 18:36] LABS: GLUCOMETER DEV NAME(LOC) PVLAB.35; GLUCOSE,POINT OF CARE 129 MG/DL (70-110)
[2022-02-26 20:10] VITALS: BP 132/79
[2022-02-26 21:20] VITALS: BP 138/70
[2022-02-27 00:01] VITALS: BP 123/76
[2022-02-27] MEDS: VALSARTAN 40 MG TABLET PO SCH ×3 (00:31→21:35)
[2022-02-27] MEDS: CARVEDILOL 6.25 MG TABLET PO SCH ×3 (00:32→21:35)
[2022-02-27] MEDS: ACETAMINOPHEN 325 MG TABLET PO PRN (00:32)
[2022-02-27] MEDS: FUROSEMIDE 20 MG/2 ML VIAL IVP SCH ×3 (00:32→21:34)
[2022-02-27] MEDS: HEPARIN SODIUM,PORCINE 5,000 UNITS/ML VIAL SQ SCH ×3 (00:33→15:46)
[2022-02-27 04:09] VITALS: BP 112/68
[2022-02-27 06:11] LABS: BASOPHILS % (AUTO) 1.2 % (0.0-2.0); EOSINOPHILS % (AUTO) 3.9 % (1.0-6.0); HEMATOCRIT 34.5 % (36-46); HEMOGLOBIN 11.5 g/dL (12.0-16.0); LYMPHOCYTES # (AUTO) 2.1 K/uL (1.0-4.8); LYMPHOCYTES % (AUTO) 26.6 % (22.0-44.0); MEAN CORPUSCULAR HGB CONC 33.2 G/dL (31.0-37.0); MEAN CORPUSCULAR VOLUME 87 fL (80-100); MONOCYTES # (AUTO) 0.7 K/uL (0.1-1.0); MONOCYTES % (AUTO) 8.5 % (2.0-9.0); NEUTROPHILS # (AUTO) 4.8 K/uL (1.8-7.7); NEUTROPHILS % (AUTO) 59.8 % (40.0-70.0); PLATELET COUNT (AUTO) 259 K/uL (150-450); RED BLOOD CELL COUNT(AUTO) 3.95 MIL/uL (4.00-5.20); RED CELL DISTRIBUTION WIDTH 15.8 % (11.5-14.5)
[2022-02-27 06:21] LABS: CALCIUM, TOTAL 8.7 mg/dL (8.8-10.5); CREATININE 1.18 mg/dL (0.60-1.30); POTASSIUM 3.8 mmol/L (3.5-5.1)
[2022-02-27] MEDS: LEVOTHYROXINE SODIUM 150 MCG TABLET PO SCH (07:10)
[2022-02-27 07:50] VITALS: BP 120/78
[2022-02-27] MEDS: ASPIRIN 81 MG CHEWABLE TABLET PO SCH (08:27)
[2022-02-27] MEDS: SPIRONOLACTONE 25 MG TABLET PO SCH (08:28)
[2022-02-27] MEDS: ATORVASTATIN CALCIUM 40 MG TABLET PO SCH (08:28)
[2022-02-27 11:39] VITALS: BP 115/70
[2022-02-27 15:27] VITALS: BP 130/72
[2022-02-27 19:48] VITALS: BP 126/72
[2022-02-27 20:41] LABS: GLUCOMETER DEV NAME(LOC) 5S.2B; GLUCOSE,POINT OF CARE 119 MG/DL (70-110)
[2022-02-27 20:41] LABS: GLUCOMETER DEV NAME(LOC) 5S.2B; GLUCOSE,POINT OF CARE 113 MG/DL (70-110)
[2022-02-27 20:42] LABS: GLUCOMETER DEV NAME(LOC) 5S.2B; GLUCOSE,POINT OF CARE 93 MG/DL (70-110)
[2022-02-28] VITALS (7 sets, daily range): BP systolic 106–139; BP diastolic 56–85
[2022-02-28] MEDS: HEPARIN SODIUM,PORCINE 5,000 UNITS/ML VIAL SQ SCH ×3 (00:12→16:00)
[2022-02-28] MEDS: LEVOTHYROXINE SODIUM 150 MCG TABLET PO SCH (06:15)
[2022-02-28] MEDS: VALSARTAN 40 MG TABLET PO SCH ×2 (08:40→20:45)
[2022-02-28] MEDS: SPIRONOLACTONE 25 MG TABLET PO SCH (08:40)
[2022-02-28] MEDS: CARVEDILOL 6.25 MG TABLET PO SCH ×2 (08:41→20:46)
[2022-02-28] MEDS: ATORVASTATIN CALCIUM 40 MG TABLET PO SCH (08:41)
[2022-02-28] MEDS: FUROSEMIDE 20 MG/2 ML VIAL IVP SCH ×2 (08:43→20:46)
[2022-02-28] MEDS: ASPIRIN 81 MG CHEWABLE TABLET PO SCH (09:00)
[2022-02-28 11:16] LABS: GLUCOMETER DEV NAME(LOC) 5S.2B; GLUCOSE,POINT OF CARE 132 MG/DL (70-110)
[2022-02-28 12:11] LABS: GLUCOMETER DEV NAME(LOC) 5S.1B; GLUCOSE,POINT OF CARE 86 MG/DL (70-110)
[2022-02-28] MEDS: ACETAMINOPHEN 325 MG TABLET PO PRN (20:45)
[2022-03-01] MEDS: LEVOTHYROXINE SODIUM 150 MCG TABLET PO SCH (06:29)
[2022-03-01 06:36] VITALS: BP 126/62
[2022-03-01 07:25] VITALS: BP 127/63
[2022-03-01] MEDS: HEPARIN SODIUM,PORCINE 5,000 UNITS/ML VIAL SQ SCH ×3 (08:00→16:21)
[2022-03-01] MEDS: BUDESONIDE 0.5 MG/2 ML NEB SOLUTION NEB SCH ×2 (09:00→20:04)
[2022-03-01] MEDS: SPIRONOLACTONE 25 MG TABLET PO SCH (09:00)
[2022-03-01] MEDS: CARVEDILOL 6.25 MG TABLET PO SCH ×2 (09:00→20:08)
[2022-03-01] MEDS: ATORVASTATIN CALCIUM 40 MG TABLET PO SCH (09:00)
[2022-03-01] MEDS: ASPIRIN 81 MG CHEWABLE TABLET PO SCH (09:00)
[2022-03-01] MEDS: VALSARTAN 40 MG TABLET PO SCH ×2 (09:00→20:08)
[2022-03-01] MEDS: FUROSEMIDE 20 MG/2 ML VIAL IVP SCH ×2 (10:25→20:07)
[2022-03-01 11:30] VITALS: BP 121/70
[2022-03-01 11:56] LABS: GLUCOMETER DEV NAME(LOC) 5S.1B; GLUCOSE,POINT OF CARE 99 MG/DL (70-110)
[2022-03-01] MEDS ORDERED: FentaNYL CITRATE PF 100 MCG/2 ML VIAL ONE (13:51)
[2022-03-01] MEDS ORDERED: FLUMAZENIL 0.1 MG/ML 5 ML VIAL IVP ONE (13:52)
[2022-03-01] MEDS ORDERED: MIDAZOLAM HCL 2 MG/2 ML VIAL ONE (13:52)
[2022-03-01] MEDS ORDERED: NALOXONE HCL 0.4 MG/ML VIAL ONE (13:52)
[2022-03-01] MEDS ORDERED: GELATIN SPONGE,ABSORBABLE 12-7 MM TP ONE (13:52)
[2022-03-01 16:50] VITALS: BP 114/66
[2022-03-01 17:06] LABS: GLUCOMETER DEV NAME(LOC) 5N.1C; GLUCOSE,POINT OF CARE 95 MG/DL (70-110)
[2022-03-01 18:11] LABS: GLUCOMETER DEV NAME(LOC) 5N.1C; GLUCOSE,POINT OF CARE 142 MG/DL (70-110)
[2022-03-01 19:15] VITALS: BP 136/63
[2022-03-01 22:56] LABS: GLUCOMETER DEV NAME(LOC) 5S.1B; GLUCOSE,POINT OF CARE 69 MG/DL (70-110)
[2022-03-01 23:40] VITALS: BP 130/71
[2022-03-02 03:45] VITALS: BP 124/73
[2022-03-02] MEDS: LEVOTHYROXINE SODIUM 150 MCG TABLET PO SCH (06:06)
[2022-03-02] MEDS: BUDESONIDE 0.5 MG/2 ML NEB SOLUTION NEB SCH ×2 (07:05→20:17)
[2022-03-02 07:50] VITALS: BP 121/66
[2022-03-02] MEDS: HEPARIN SODIUM,PORCINE 5,000 UNITS/ML VIAL SQ SCH ×3 (08:00→16:00)
[2022-03-02] MEDS: SPIRONOLACTONE 25 MG TABLET PO SCH (08:07)
[2022-03-02] MEDS: CARVEDILOL 6.25 MG TABLET PO SCH ×2 (08:07→20:11)
[2022-03-02] MEDS: ATORVASTATIN CALCIUM 40 MG TABLET PO SCH (08:07)
[2022-03-02] MEDS: VALSARTAN 40 MG TABLET PO SCH ×2 (08:07→20:11)
[2022-03-02] MEDS: ASPIRIN 81 MG CHEWABLE TABLET PO SCH (08:08)
[2022-03-02] MEDS: FUROSEMIDE 20 MG/2 ML VIAL IVP SCH ×2 (08:08→20:11)
[2022-03-02 11:50] VITALS: BP 127/70
[2022-03-02] MEDS ORDERED: FentaNYL CITRATE PF 100 MCG/2 ML VIAL ONE (13:09)
[2022-03-02] MEDS ORDERED: NALOXONE HCL 0.4 MG/ML VIAL ONE (13:09)
[2022-03-02] MEDS ORDERED: GELATIN SPONGE,ABSORBABLE 12-7 MM TP ONE (13:09)
[2022-03-02] MEDS ORDERED: LIDOCAINE/PF 1% 5 ML VIAL ONE (13:09)
[2022-03-02] MEDS ORDERED: MIDAZOLAM HCL 2 MG/2 ML VIAL ONE (13:09)
[2022-03-02] MEDS ORDERED: FLUMAZENIL 0.1 MG/ML 5 ML VIAL IVP ONE (13:09)
[2022-03-02] MEDS ORDERED: FentaNYL CITRATE PF 100 MCG/2 ML VIAL IVP PRN (15:00)
[2022-03-02 15:16] LABS: GLUCOMETER DEV NAME(LOC) 5S.2B; GLUCOSE,POINT OF CARE 119 MG/DL (70-110)
[2022-03-02] MEDS ORDERED: MIDAZOLAM HCL 2 MG/2 ML VIAL IVP ONE (16:00)
[2022-03-02] MEDS ORDERED: FentaNYL CITRATE PF 100 MCG/2 ML VIAL IVP ONE ×2 (16:00→16:45)
[2022-03-02 16:40] VITALS: BP 125/67
[2022-03-02 20:03] VITALS: BP 121/63
[2022-03-03] MEDS: HEPARIN SODIUM,PORCINE 5,000 UNITS/ML VIAL SQ SCH ×3 (00:07→16:04)
[2022-03-03 00:19] VITALS: BP 121/67
[2022-03-03 04:32] VITALS: BP 120/74
[2022-03-03] MEDS: LEVOTHYROXINE SODIUM 150 MCG TABLET PO SCH (06:11)
[2022-03-03 07:08] VITALS: BP 136/66
[2022-03-03] MEDS: BUDESONIDE 0.5 MG/2 ML NEB SOLUTION NEB SCH (08:01)
[2022-03-03] MEDS: ASPIRIN 81 MG CHEWABLE TABLET PO SCH (08:52)
[2022-03-03] MEDS: FUROSEMIDE 20 MG/2 ML VIAL IVP SCH (08:54)
[2022-03-03] MEDS: CARVEDILOL 6.25 MG TABLET PO SCH (08:55)
[2022-03-03] MEDS: ATORVASTATIN CALCIUM 40 MG TABLET PO SCH (08:55)
[2022-03-03] MEDS: VALSARTAN 40 MG TABLET PO SCH (08:55)
[2022-03-03] MEDS: SPIRONOLACTONE 25 MG TABLET PO SCH (08:55)
[2022-03-03 11:07] VITALS: BP 111/55
[2022-03-03 11:56] LABS: GLUCOMETER DEV NAME(LOC) 5N.1C; GLUCOSE,POINT OF CARE 119 MG/DL (70-110)
[2022-03-03 15:47] VITALS: BP 118/62
[2022-03-03] MEDS ORDERED: FURO-152 PO (15:53)
[2022-03-03 20:07] LABS: GLUCOMETER DEV NAME(LOC) 5S.1B; GLUCOSE,POINT OF CARE 113 MG/DL (70-110)
[2022-03-03 20:07] LABS: GLUCOMETER DEV NAME(LOC) 5S.1B; GLUCOSE,POINT OF CARE 120 MG/DL (70-110)
[2022-03-04 12:16] LABS: GLUCOMETER DEV NAME(LOC) 5S.2B; GLUCOSE,POINT OF CARE 129 MG/DL (70-110)
== END 2022-03-03 18:20 | disposition home health service (06) | DRG 291 ==
LOC: EMS 02:32 → 5S 18:38
PROVIDERS: ADMIT Internal Medicine; ATTEND Internal Medicine
PROC: 5A09357 Assistance with Respiratory Ventilation, Less than 24 Consecutive Hours, Continuous Positive Airway Pressure (ICD-10-PCS; principal; 2022-02-26)
PROC: 0BBL3ZX Excision of Left Lung, Percutaneous Approach, Diagnostic (ICD-10-PCS; 2022-03-02)
DX: I11.0 Hypertensive heart disease with heart failure (principal); I50.23 Acute on chronic systolic (congestive) heart failure; J96.01 Acute respiratory failure with hypoxia; J44.1 Chronic obstructive pulmonary disease with (acute) exacerbation; C34.92 Malignant neoplasm of unspecified part of left bronchus or lung; E11.65 Type 2 diabetes mellitus with hyperglycemia; E03.9 Hypothyroidism, unspecified; E78.5 Hyperlipidemia, unspecified; I34.0 Nonrheumatic mitral (valve) insufficiency; F17.200 Nicotine dependence, unspecified, uncomplicated; Z82.49 Family history of ischemic heart disease and other diseases of the circulatory system; Z90.710 Acquired absence of both cervix and uterus; Z20.822 Contact with and (suspected) exposure to COVID-19; Z79.899 Other long term (current) drug therapy; Z79.82 Long term (current) use of aspirin; Z79.84 Long term (current) use of oral hypoglycemic drugs
CPT/HCPCS: 32408; 71045; 71250; 80048; 80053; 81001; 81003; 82948; 82962; 83605; 83735; 83880; 84484; 85025; 85610; 85730; 87040; 87081; 87804; 88305; 93005; 94640; 94660; 99285; J0456; J1644; J1940; J2001; J2250; J2310; J3010; J3490; 36415-L1; 36415-TC